=== PATIENT | female | born 1950 | race Caucasian/White ===

== ENCOUNTER 2017-10-10 15:51 | Emergency (ER) | payer OTHER ==
[~2017-10-10] VITALS: Ht 170.2 cm; Wt 93.9 kg
[~2017-10-10 15:51] MED LIST: ASPI81CH PO; Antivert25 MG PO; BENAML10/5; MED FOR STOMACH; METO25ER PO; TERB250; ZOLP10
[2017-10-10] MEDS ORDERED: LINZESS72 MCG PO (16:40)
== END 2017-10-10 18:29 | disposition home or self-care (01) ==
LOC: ER 15:51
DX: S09.92XA Unspecified injury of nose, initial encounter (principal); W18.30XA Fall on same level, unspecified, initial encounter; Z88.0 Allergy status to penicillin; Z79.899 Other long term (current) drug therapy; Z79.82 Long term (current) use of aspirin
CPT/HCPCS: 99283

== ENCOUNTER 2024-08-20 12:11 | Day surgery (SDC) | payer OTHER ==
[~2024-08-20] VITALS: Ht 167.6 cm; Wt 98.7 kg
[~2024-08-20 12:11] MED LIST changes: +Amlodipine-Ben1 EAC1 PO; +Cipro500 MG PO; +HYDROCODONE-AC1 EAC7 PO; +LINZESS72 MCG PO; +METR500 PO; +PANTOPRAZOLE SO40 M2 PO; +TOPROL XL25 MG PO; +ZOLPIDEM TARTRA10 MG PO
[2024-08-20] MEDS ORDERED: TOLTERODINE TART4 MG (13:21)
[2024-08-20] MEDS ORDERED: TYLENOL PM (13:22)
[2024-08-20] MEDS ORDERED: Lactated Ringer's 1,000 ML IV ONE ×2 (13:33→13:51)
[2024-08-20] MEDS ORDERED: FentaNYL Citrate 50 MCG/ML 2 ML Injection ONE (13:54)
[2024-08-20] MEDS ORDERED: propofoL 20 ML IV ONE (13:54)
[2024-08-20] MEDS ORDERED: Midazolam HCl 1MG / ML 2ML Vial ONE (13:54)
[2024-08-20] MEDS ORDERED: Lidocaine HCl 2% 10 ML SDA ONE (14:30)
[2024-08-20] MEDS ORDERED: EPINEPhrine HCl 1 MG / ML 30ML Vial ONE (14:30)
[2024-08-20] MEDS ORDERED: Dexamethasone Sod Phos 10 MG/ML 1ML VIAL ONE (15:03)
[2024-08-20] MEDS ORDERED: Ondansetron HCl 2 MG / ML 2ML Vial ONE (15:03)
[2024-08-20] MEDS ORDERED: Sugammadex Sodium 200 MG/2ML SDV (100 MG/ML) ONE ×2 (15:07→15:09)
[2024-08-20] MEDS ORDERED: Esmolol HCL 10 MG/ML 10ML VIAL ONE (15:08)
--- NOTE | 2024-08-20 15:28 | NUR ---
08/20/24 1528 Bernie Davis 1515 PT TO PACU WITH NRB AT 10%, D/C'D ON ARRIVAL, SATS STABLE
[2024-08-20 16:31] VITALS: BP 167/93
== END 2024-08-20 16:20 | disposition home or self-care (01) ==
LOC: ORSCSDS 12:11
PROVIDERS: Otolaryngology
PROC: 0CBS8ZX Excision of Larynx, Via Natural or Artificial Opening Endoscopic, Diagnostic (ICD-10-PCS; principal; 2024-08-20 13:45)
DX: J38.7 Other diseases of larynx (principal); J05.10 Acute epiglottitis without obstruction; I10 Essential (primary) hypertension; I47.10 Supraventricular tachycardia, unspecified; K21.9 Gastro-esophageal reflux disease without esophagitis; E66.9 Obesity, unspecified; Z68.35 Body mass index [BMI] 35.0-35.9, adult; Z79.899 Other long term (current) drug therapy
CPT/HCPCS: 82947; 88305; 88312; J0171; J1100; J2003; J2250; J2405; J2704; J3010; J7120